=== PATIENT | female | born 1950 | race African-American/Black ===

== ENCOUNTER 2017-04-01 14:02 | Inpatient (IN) | payer OTHER ==
[2017-04-01 17:49] VITALS: BMI 29.6
--- NOTE | 2017-04-01 19:02 | HP ---
Admission ROS S - [facility] Chief Complaint: i want to go to rehab Allergies/Adverse Reactions: Allergies Allergy/AdvReac Type Severity Reaction Status Date / Time Penicillins Allergy Severe Hives Verified 04/01/17 18:40 History of Present Illness: 67 years old female with long history of cocaine alcohol nicotine dependence has hypertension schizophrenia is admitted to rehab Exam Limitations: No Limitations - Ebola screening Have you traveled outside of the country in the last 21 days: No (N) Have you had contact with anyone from an Ebola affected area: No Have you been sick,other than usual withdrawal symptoms: No Do you have a fever: No - Review of Systems Constitutional: Weight Stable EENT: reports: No Symptoms Reported Respiratory: reports: Cough Cardiac: reports: No Symptoms Reported GI: reports: No Symptoms Reported : reports: No Symptoms Reported Musculoskeletal: reports: Back Pain, Joint Pain (knees elbows arthritis) Integumentary: reports: No Symptoms Reported Neuro: reports: No Symptoms reported Endocrine: reports: No Symptoms Reported Hematology: reports: No Symptoms Reported Psychiatric: reports: Judgement Intact, Orientated x3, Anxious, Depressed Other Systems: Reviewed and Negative Patient History - Patient Medical History Hx Anemia: No Hx Asthma: No Hx Chronic Obstructive Pulmonary Disease (COPD): No Hx Cancer: No Hx Cardiac Disorders: No Hx Congestive Heart Failure: No Hx Hypertension: Yes Hx Hypercholesterolemia: No Hx Pacemaker: No HX Cerebrovascular Accident: No Hx Seizures: No Hx Dementia: No Hx Diabetes: No Hx Gastrointestinal Disorders: No Hx Liver Disease: No Hx Genitourinary Disorders: No Hx Sexually Transmitted Disorders: No Hx Renal Disease (ESRD): No Hx Thyroid Disease: No Hx Human Immunodeficiency Virus (HIV): No Hx Hepatitis C: No Hx Depression: No Hx Suicide Attempt: Yes (2012 cut wrists) Hx Bipolar Disorder: No Hx Schizophrenia: Yes - Patient Surgical History Past Surgical History: Yes Hx Neurologic Surgery: No Hx Cataract Extraction: No Hx Cardiac Surgery: No Hx Lung Surgery: No Hx Breast Surgery: No Hx Breast Biopsy: No Hx Abdominal Surgery: No Hx Appendectomy: Yes (1969) Hx Cholecystectomy: No Hx Genitourinary Surgery: No Hx Section: No Hx Orthopedic Surgery: No Hx Hysterectomy: No Anesthesia Reaction: No - PPD History Previous Implant?: Yes Documented Results: Negative w/o proof Implanted On Prior R Admission?: No PPD to be Administered?: Yes - Reproductive History Patient is a Female of Child Bearing Age (11 -55 yrs old): No Patient : No - Smoking Cessation Smoking history: Current every day smoker Have you smoked in the past 12 months: Yes Aproximately how many cigarettes per day: 2 Cigars Per Day: 0 Hx Chewing Tobacco Use: No Initiated information on smoking cessation: Yes 'Breaking Loose' booklet given: 04/01/17 - Substance & Tx. History Hx Alcohol Use: Yes Hx Substance Use: Yes Substance Use Type: Cocaine Hx Substance Use Treatment: Yes ([facility] 03/2017) - Substances Abused Alcohol Route: Oral Frequency: Daily Amount used: 3 pints vodka Age of first use: 9 Date of Last Use: 03/25/17 Cocaine Route: Inhalation Frequency: 3-6 times per week Amount used: 2 bags Age of first use: 21 Date of Last Use: 03/30/17 Family Disease History - Family Disease History Family Disease History: CA: Mother (), Respiratory: Father (), Other: Father, Mother, Brother (no brother) Admission Physical Exam [facility] - Vital Signs Vital Signs: Vital Signs - 24 hr 04/01/17 17:46 Temperature 97.9 F Pulse Rate 74 Respiratory 20 Rate Blood Pressure 142/80 - Physical General Appearance: Yes: No Apparent Distress, Nourished, Appropriately Dressed HEENTM: Yes: Hearing grossly Normal, Normal ENT Inspection, Normocephalic, Normal Voice Respiratory: Yes: Chest Non-Tender, Lungs Clear, Normal Breath Sounds, No Respiratory Distress, No Accessory Muscle Use Neck: Yes: Supple, Trachea in good position Breast: Yes: Breasts Symetrical Cardiology: Yes: Regular Rhythm, Regular Rate, S1, S2 Abdominal: Yes: Normal Bowel Sounds, Non Tender, Soft Genitourinary: Yes: Within Normal Limits Back: Yes: Normal Inspection Musculoskeletal: Yes: full range of Motion, Gait Steady Extremities: Yes: Normal Inspection, Normal Range of Motion, Non-Tender Neurological: Yes: Fully Oriented, Alert, Motor Strength 5/5, Normal Response, Depressed Affect Integumentary: Yes: Warm Lymphatic: Yes: Within Normal Limits - Diagnostic (1) Alcohol dependence with uncomplicated withdrawal Current Visit: Yes Status: Acute (2) Cocaine dependence, uncomplicated Current Visit: Yes Status: Acute (3) Hypertension Current Visit: Yes Status: Chronic Qualifiers: Hypertension type: essential hypertension Qualified Code(s): I10 - Essential (primary) hypertension (4) Nicotine dependence Current Visit: Yes Status: Acute Qualifiers: Nicotine product type: cigarettes Substance use status: in withdrawal Qualified Code(s): F17.213 - Nicotine dependence, cigarettes, with withdrawal (5) Schizophrenia Current Visit: Yes Status: Suspected Qualifiers: Schizophrenia type: unspecified Qualified Code(s): F20.9 - Schizophrenia, unspecified Cleared for Admission [facility] - Detox or Rehab [facility] Level of Care: Observation Bed Detox Regimen/Protocol: Not Applicable Claeared for Rehab Admission: Yes [facility] Breath Alcohol Content Breath Alcohol Content: 0 Urine Pregancy Test - Result Urine Test Results: Negative- NO Line Present Urine Drug Screen - Results Drug Screen Negative: No Urine Drug Screen Results: BERENICE-Cocaine, BZO-Benzodiazepines Inpatient Rehab Admission - Initial Determination Are CD services needed?: Yes Free of communicable disease: Yes Not in need of hospitalization: Yes - Rehab Admission Criteria Previous failed treatment: Yes Poor recovery environment: Yes Comorbidities: Yes Lacks judgement: No Patient is meeting Inpatient Rehab admission criteria:: Yes
[2017-04-01] MEDS ORDERED: P-EPHED 60MG/TRIPROLIDI 2.5MG TABLET PO PRN (19:08)
[2017-04-01] MEDS ORDERED: ACETAMINOPHEN 325 MG TABLET (FP) PO PRN (19:08)
[2017-04-01] MEDS ORDERED: IBUPROFEN 400 MG TABLET (FP) PO PRN (19:08)
[2017-04-01] MEDS ORDERED: MENTHOL/PHENOL 1 EACH UD MM PRN (19:08)
[2017-04-01] MEDS ORDERED: LOPERAMIDE HCL 2 MG CAPSULE PO PRN (19:08)
[2017-04-01] MEDS ORDERED: guaiFENesin/D-METHORPHAN HB 10 ML UNIT-DOSE CUPS PO PRN (19:08)
[2017-04-01] MEDS ORDERED: NICOTINE POLACRILEX 2 MG GUM BC PRN (19:08)
[2017-04-01] MEDS ORDERED: MAG HYDROX/AL HYDROX/SIMETH 30 ML UNIT-DOSE CUP PO PRN (19:08)
[2017-04-01] MEDS ORDERED: MAGNESIUM CITRATE 300 ML BOTTLE PO PRN (19:08)
[2017-04-01] MEDS ORDERED: MAGNESIUM HYDROX 2400MG/30ML ORAL SUSPENSION 30 ML CUP PO PRN (19:08)
[2017-04-01] MEDS: amLODIPine BESYLATE 5 MG TABLET (FP) PO SCH (20:28)
[2017-04-01] MEDS: THIAMINE HCL 100 MG TABLET (FP) PO SCH (21:51)
--- NOTE | 2017-04-01 22:25 | PN ---
[facility] Progress Note Note: Psychiatry Attending's on-call note : Psychiatry Attending's on-call note : Informed of patient's admission to [facility]. Asked to enter orders for risperdal and citalopram. Contact established with patient (telephone). Referred to [facility] by I. Diagnosis : schizophrenia (as per patient). Non-adherent to medications for more than a week (own report). " I was busy doing my drugs.I did not take my medications." Unable to provide information about dosages. Search of pharmacy claims shows refills issued on 02/03/17. At [facility] Pharmacy # [id number] (risperdal 3 mg/hs). Will not resume risperdal or citalopram at this time. Medication management to be initiated in AM. Following evaluation by unit psychiatrist. Discussed with patient.Ms Oconnor agrees.
[2017-04-01 23:22] LABS: URINE APPEARANCE TURBID; URINE BILIRUBIN NEGATIVE (NEGATIVE); URINE BLOOD NEGATIVE (NEGATIVE); URINE COLOR YELLOW; URINE GLUCOSE (UA) NEGATIVE (NEGATIVE); URINE KETONE NEGATIVE (NEGATIVE); URINE LEUK ESTERASE 1+ (NEGATIVE); URINE NITRITE NEGATIVE (NEGATIVE); URINE PROTEIN NEGATIVE (NEGATIVE); URINE UROBILINOGEN NEGATIVE mg/dL (0.2-1.0)
[2017-04-01 23:30] LABS: CALCIUM OXALATE CRYSTALS FEW /hpf (NONE SEEN); EPI CELLS MANY /HPF (FEW); URINE MUCUS MANY
[2017-04-01 23:36] LABS: AMORP URATES FEW /hpf (NONE SEEN)
[2017-04-02] MEDS: PRENATAL VITAMINS W/ FOLIC ACID TABLET (FP) PO SCH (09:57)
[2017-04-02] MEDS: amLODIPine BESYLATE 5 MG TABLET (FP) PO SCH (09:57)
[2017-04-02] MEDS: NICOTINE 14 MG/24 HOURS TOPICAL PATCH TD SCH (09:58)
[2017-04-02 10:22] LABS: HEMATOCRIT 38.7 % (32.4-45.2); HEMOGLOBIN 12.5 GM/dL (10.7-15.3); MCH 28.8 pg (25.7-33.7); MCHC 32.4 g/dl (32.0-36.0); MEAN PLT VOLUME 9.1 fl (7.5-11.1); PLATELET COUNT 243 K/MM3 (134-434); RBC 4.35 M/mm3 (3.60-5.2); RDW 16.6 % (11.6-15.6); WHITE BLOOD COUNT 5.3 K/mm3 (4.0-10.0)
[2017-04-02 10:24] LABS: ALBUMIN 3.2 g/dl (3.4-5.0); ALK PHOS 70 U/L (45-117); ANION GAP 9 (8-16); BILIRUBIN,TOTAL 0.2 mg/dL (0.2-1.0); BLOOD UREA NITROGEN 12 mg/dL (7-18); CALCIUM 8.9 mg/dL (8.5-10.1); CHLORIDE 108 mmol/L (98-107); CO2 27 mmol/L (21-32); GLUCOSE,RANDOM 105 mg/dL (74-106); POTASSIUM 4.1 mmol/L (3.5-5.1); SGOT/AST 11 U/L (15-37); SGPT/ALT 16 U/L (12-78); SODIUM 144 mmol/L (136-145)
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
[2017-04-02] MEDS: CITALOPRAM HYDROBROMIDE 20 MG TABLET (FP) PO SCH (15:52)
[2017-04-02 16:57] LABS: URINE APPEARANCE CLEAR; URINE BILIRUBIN NEGATIVE (NEGATIVE); URINE BLOOD NEGATIVE (NEGATIVE); URINE COLOR LTYELLOW; URINE GLUCOSE (UA) NEGATIVE (NEGATIVE); URINE KETONE NEGATIVE (NEGATIVE); URINE LEUK ESTERASE NEGATIVE (NEGATIVE); URINE NITRITE NEGATIVE (NEGATIVE); URINE PROTEIN NEGATIVE (NEGATIVE); URINE UROBILINOGEN NEGATIVE mg/dL (0.2-1.0)
[2017-04-02] MEDS ORDERED: PT OWN MED DRAWER 7, Y5N ONE (19:53)
[2017-04-02] MEDS: THIAMINE HCL 100 MG TABLET (FP) PO SCH (21:49)
[2017-04-02] MEDS ORDERED: risperiDONE 3 MG TABLET PO SCH (22:00)
[2017-04-02] MEDS ORDERED: diphenhydrAMINE HCL 50 MG CAPSULE PO SCH (22:00)
[2017-04-03 07:45] VITALS: BP 157/82; PULSE 65; TEMP 97.3
[2017-04-03] MEDS: NICOTINE 14 MG/24 HOURS TOPICAL PATCH TD SCH (09:19)
[2017-04-03] MEDS: CITALOPRAM HYDROBROMIDE 20 MG TABLET (FP) PO SCH (09:19)
[2017-04-03] MEDS: PRENATAL VITAMINS W/ FOLIC ACID TABLET (FP) PO SCH (09:20)
[2017-04-03] MEDS: amLODIPine BESYLATE 5 MG TABLET (FP) PO SCH (09:20)
--- NOTE | 2017-04-03 11:02 | PN ---
Psychiatric Progress Note Vital Signs: Vital Signs Period Temp Pulse Resp BP Sys/Khan Pulse Ox Last 24 Hr 97.3 F 65 18-18 157/82 Date of Session: 04/03/17 Chief Complaint:: "signing ama" HPI: Patient is a 67 year old female admitted to 04/01/17 with history of alcohol, cocaine, nicotine dependence comorbid schizophrenia Current Medications: Active Medications Generic Name Dose Route Start Last Admin Trade Name Freq PRN Reason Stop Dose Admin Acetaminophen 650 mg 04/01/17 19:08 Tylenol - PO Q4H PRN PAIN Al Hydroxide/Mg Hydroxide 30 ml 04/01/17 19:08 Mylanta Oral Suspension - PO Q6H PRN DYSPEPSIA Amlodipine Besylate 5 mg 04/01/17 19:15 04/03/17 09:20 Norvasc - PO 5 mg DAILY APOLLO Administration Citalopram Hydrobromide 20 mg 04/02/17 15:40 04/03/17 09:19 Celexa - PO 20 mg DAILY APOLLO Administration Diphenhydramine HCl 50 mg 04/02/17 22:00 04/02/17 21:49 Benadryl - PO 50 mg HS APOLLO Administration Eucalyptus/Menthol/Phenol/Sorbitol 1 each 04/01/17 19:08 Cepastat Lozenge - MM Q4H PRN SORE THROAT Guaifenesin 10 ml 04/01/17 19:08 Robitussin Dm - PO Q6H PRN COUGH Ibuprofen 400 mg 04/01/17 19:08 Motrin - PO Q6H PRN SEVERE PAIN Loperamide HCl 4 mg 04/01/17 19:08 Imodium - PO Q6H PRN DIARRHEA Magnesium Citrate 300 ml 04/01/17 19:08 Citroma - PO Q48H PRN CONSTIPATION Magnesium Hydroxide 30 ml 04/01/17 19:08 04/01/17 21:51 Milk Of Magnesia - PO 30 ml DAILY PRN Administration CONSTIPATION Nicotine 14 mg 04/02/17 10:00 04/03/17 09:19 Nicoderm Patch - TD 14 mg DAILY APOLLO Administration Nicotine Polacrilex 2 mg 04/01/17 19:08 04/02/17 15:37 Nicorette Gum - BC 2 mg Q2H PRN Administration NICOTINE REPLACEMENT RX Multivit/Folic Acid/Iron 1 tab 04/02/17 10:00 01/11/18 09:20 Vitamins (Sjr) - PO 1 tab DAILY APOLLO Administration Pseudoephedrine/Triprolidine 1 combo 04/01/17 19:08 Actifed - PO TID PRN NASAL CONGESTION Risperidone 3 mg 04/02/17 22:00 04/02/17 21:49 Risperdal - PO 3 mg HS APOLLO Administration Thiamine HCl 100 mg 04/01/17 22:00 04/02/17 21:49 Vitamin B1 - PO 100 mg HS APOLLO Administration Current Side Effect: No Lab tests ordered: No Lab tests reviewed: Yes Provider note:: Patient reported to the staff that she is leaving treatment AMA , met with the patient to explore reasons for this decison, patient reports that he has a family issues she needs to take care of, she currently on risperdal and celexa. scripts provided for 30 days, patient was encouraged to focus on her treatment, but she is adamant to leave, stable for ama discharge. Total face to face time:: 20 Mental Status Exam - Mental Status Exam Alert and Oriented to: Time, Place, Person Cognitive Function: Good Patient Appearance: Well Groomed Affect: Appropriate, Mood Congruent Patient Behavior: Appropriate, Cooperative Speech Pattern: Clear, Appropriate Voice Loudness: Normal Thought Process: Intact Thought Disorder: Not Present Hallucinations: None Suicidal Ideation: None Homicidal Ideation: None Insight/Judgement: Good Sleep: Well Appetite: Good Muscle strength/Tone: Normal Gait/Station: Normal Psychiatric Treatment Plan - Problem List (1) Cocaine dependence Current Visit: Yes (2) Alcohol dependence Current Visit: Yes (3) Nicotine dependence Current Visit: Yes Qualifiers: Nicotine product type: cigarettes Substance use status: in withdrawal Qualified Code(s): F17.213 - Nicotine dependence, cigarettes, with withdrawal (4) Schizophrenia Current Visit: Yes Qualifiers: Schizophrenia type: unspecified Qualified Code(s): F20.9 - Schizophrenia, unspecified
--- NOTE | 2017-04-03 14:34 | EKG ---
Test Reason : Blood Pressure : / mmHG Vent. Rate : 086 BPM Atrial Rate : 086 BPM P-R Int : 186 ms QRS Dur : 092 ms QT Int : 370 ms P-R-T Axes : 066 025 034 degrees QTc Int : 442 ms NORMAL SINUS RHYTHM NORMAL ECG NO PREVIOUS ECGS AVAILABLE Confirmed by MELA KRISHNA MD ([id number]) on 04/03/2017 2:33:31 PM Referred By: Confirmed By:MELA KRISHNA MD
== END 2017-04-03 10:10 | disposition home or self-care (01) | DRG 895 ==
LOC: YASAS 14:02 → Y3E 18:54
PROVIDERS: ADMIT Psychiatry & Neurology Psychiatry; ATTEND Psychiatry & Neurology Psychiatry
PROC: HZ42ZZZ Group Counseling for Substance Abuse Treatment, Cognitive-Behavioral (ICD-10-PCS; principal; 2017-03-31)
DX: F10.20 Alcohol dependence, uncomplicated (principal); F14.20 Cocaine dependence, uncomplicated; F17.213 Nicotine dependence, cigarettes, with withdrawal; F20.9 Schizophrenia, unspecified; I10 Essential (primary) hypertension; Z91.5 Personal history of self-harm; Z59.0 Homelessness
CPT/HCPCS: 36415; 80053; 81003; 81015; 85027; 86593; 87389; 93005; 93010